=== PATIENT | male | born 1970 | race Caucasian/White ===

== ENCOUNTER 2018-05-10 11:43 | Outpatient (CLI) | payer BC, SELFPAY ==
--- NOTE | 2018-05-10 10:38 | DI.RAD_ITS ---
SYMPTOM/DIAGNOSIS: PAIN RIGHT ELBOW: No bony or joint abnormality is seen.
== END 2018-05-10 12:03 ==
PROVIDERS: PCP Family Medicine; Visit Provider Orthopaedic Surgery
DX: M25.521 Pain in right elbow (principal)
CPT/HCPCS: 73080

== ENCOUNTER 2022-01-28 07:59 | Day surgery (SDC) | payer BC, SELFPAY ==
--- NOTE | 2022-01-27 23:33 | PDOC.DSDIS_ITS ---
Discharge Plan Disposition Patient Disposition: HOME Condition: Good Discharge Details Reason For Visit: colon scope Attending Provider: Winsome Fraga Primary Care Provider: Mary Talamantes Home Meds and New Rx's Prescriptions: No Action triamcinolone acetonide 0.1 % cream 1 applic Topical BID Qty: 30 2RF epinephrine [EpiPen 2-Carlos] 0.3 mg/0.3 mL auto-injector 0.3 mg IM ONCE Qty: 2 0RF psyllium husk [Metamucil] 0.4 gram Capsule 0.4 g PO DAILY Discharge Instructions Additional Instructions: DSU Colonoscopy Post- Op Instructions Instructions for Everyone who is given Anesthesia: For your safety, please do the following for the next twenty-four (24) hours: *Do Not operate a motor vehicle (car, truck, motorcycle, etc.) *Do Not drink alcoholic beverages or use any recreational drugs for the first 24 hours or while taking pain medications. The medications in your body may have a reaction that can be dangerous. *Do Not make any important decisions or sign any important papers. Findings: x2 small polyps Follow up: My office will send a letter in 2 to 3 weeks time detailing as to what type of polyps they are and when we want you to repeat the colonoscopy. 1. No lifting over 20 pounds or strenuous activity for the first 24 hours after your procedure. After 24 hours there are no restrictions on your activity but you may feel fatigued for a few days. 2. After you arrive home you may have a light meal and return to your normal diet as you can tolerate it without feeling sick to your stomach. 3. You may have a bloated, gaseous feeling in your belly (abdomen) after a colonoscopy. Passing gas and belching will help. Walking or lying down on your left side with your knees flexed may relieve the discomfort. Call the office at [phone] (Office) or [phone] (Hospital) right away if you notice any of the following: a.Vomiting of blood or ?coffee ground stools?. b.Rectal bleeding 1Tbsp, blood clots or continuous bleeding. c.Severe belly (abdominal) pain. d.A hard distended belly (abdomen) and an inability to pass gas. 4. Please don?t expect to have a normal BM (bowel movement) for 2-3 days after your procedure. 5. If there are questions regarding the findings of your procedure, please contact your doctor 6. If you are unable to contact your doctor with a problem, contact the hospital at [phone]. 7. Continue all your regular medications unless directed otherwise. I understand the above instructions and have no questions. Signature of Patient or Adult Escort Name of Responsible Adult Escort Signature of Nurse Date/Time Activity:: see above Diet:: see above Discharge Orders Discharge Orders: Discharge Order (Routine); Ordered 01/27/22 Ordered By: Winsome Fraga
--- NOTE | 2022-01-27 23:34 | COLE_ITS ---
Colonoscopy Report Date of procedure: 01/28/22 Pre-op diagnosis general: 2degree family member w/ CRC cancer Post-op diagnosis procedure note: other (polyps x2 ) Surgeon: Winsome Fraga Anesthesia Type: General:No Airway Estimated blood loss (mL): 1 Complications: None Disposition: same day Prep: Miralax/Dulcolax Retraction Time: 9 mis Procedure Description: After informed consent was obtained the patient was taken to the procedure room and placed in a left decubitous position. Monitors were applied and a time out was done. The patients name, date of , procedure, allergies to medications and metal in their body was reviewed. The patient was then sedated. Once sedated and comfortable a rectal exam was done. External exam was normal. Internal exam revealed a normal sphincter tone and no palpable masses. The scope was then introduced and retrofelexed. No internal hemorrhoids were identified. The scope was then advanced to the cecum w/ difficulty. The TI and appendiceal orifice were identified. The prep was BBPSI in right colon/cecum and BBPS III in transverse/sigmoid/rectum, for a total of 7. We did lavage the right colon with almost 2 L of saline today. There are no AVMs, or polyps visualized today. The mucosa is pink and healthy with a normal vascular pattern . There was a <5mm flat polyp @ 30cm & in rectum. THese are removed w/ a cold forcept. All specimen is retrieved and no bleeding is noted. The scope was then slowly retracted over 9 minutes back into the rectum. There are no AVMs or diverticula seen today. The scope was removed and the patient was woken up and taken back to Same day surgery in stable condition. The patient tolerated the procedure well and there were no immediate complications. Follow up: The patient should follow up in 5-7 years, path pd, unless they develop changes in bowel habits or other new gastrointestinal complaints.
[2022-01-28 08:12] VITALS: BP 130/87; PULSE 73; RESP 16; TEMP 36.2; O2SAT 97
[2022-01-28] MEDS: Lactated Ringers 1,000 ML 80 ML IV (08:31)
--- NOTE | 2022-01-28 08:38 | W.ANESPRE ---
General Info Date of Service Date Performed: 01/28/22 Height: 5 ft 11 in Weight: 106.6 kg Body Mass Index (BMI): 32.8 Surgical Procedure: Operation Date: 01/28/22 09:05 Proposed Procedure Side Surgeon p Colonoscopy Winsome Fraga DO Actual Procedure Side Surgeon p Colonoscopy Not Applicable Winsome Fraga, Pre-Op Diagnosis Post-Op Diagnosis SCREENING Meds Allergies and Home Medications Allergies Allergy/AdvReac Type Severity Reaction Status Date / Time shellfish derived Allergy Severe Anaphylaxis Verified 01/28/22 08:09 bee pollen Allergy Intermediate SWELLING Verified 01/28/22 08:09 aspirin Allergy Mild Headache Verified 01/28/22 08:19 and hives Home Medication Medication Instructions Recorded epinephrine 0.3 mg/0.3 mL 0.3 mg (0.3 mL) IM ONCE #2 ea 12/24/21 injection, auto-injector (EpiPen 2-Carlos) triamcinolone acetonide 0.1 % 1 applic topical BID #30 grams 12/24/21 topical cream psyllium husk 0.4 gram capsule 0.4 g PO DAILY 01/26/22 (Metamucil) Current Visit Medications: Current Medications Generic Name Dose Route Start Last Admin Trade Name Freq PRN Reason Stop Dose Admin Hyoscyamine Sulfate 0.125 mg 01/27/22 23:33 Hyoscyamine 0.125 Mg Sl/Oral/Chew SL DIRECTED PRN Ringer's Solution 1,000 mls @ 80 mls/hr 01/28/22 06:00 01/28/22 08:31 IV 02/26/22 23:59 80 mls/hr INFUSION EDEN Administration IV Miscellaneous Supplies 1 each 01/28/22 06:00 Iv Access IV 02/26/22 23:59 DIRECTED EDEN Ondansetron HCl 4 mg 01/27/22 23:33 Ondansetron 4 Mg/2 Ml Vial IVP Q4H PRN PRN Nausea / Vomiting Sodium Chloride 0 ml 01/28/22 06:00 Normal Saline Flush 10 Ml Syr IV 02/26/22 23:59 PRN PRN Sodium Chloride 0 ml 01/28/22 06:00 Normal Saline 10 Ml Vial IJ 02/26/22 23:59 DIRECTED PRN Sterile Water 0 ml 01/28/22 06:00 Water,Injection,Sterile 10 Ml Vial IJ 02/26/22 23:59 DIRECTED PRN [facility] Active Problems Active Problems: Problem Status Onset Code Obstructive sleep apnea syndrome G47.33 Obesity E66.9 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 Screening for colon cancer Z12.11 Medical History Medical History Fatigue Fracture of bone Non-neoplastic nevus Smoker 10 years ago quit Surgical History Surgical History Tonsillectomy and adenoidectomy Tobacco Smoking/Tobacco Use Status: Former Tobacco Use Passive smoking exposure: Yes Second hand exposure: Yes Alcohol Alcohol Intake: current Alcohol intake frequency: a few times a month Alcohol type: wine Substance Use Substance use: Never Substance use type: does not use Vital Signs and Lab Results Vital Signs Most Recent Vital Signs in EMR: Most Recent Vital Signs Temp Pulse Resp BP Pulse Ox 36.2 C L 73 16 130/87 97 01/28/22 08:12 01/28/22 08:12 01/28/22 08:12 01/28/22 08:12 01/28/22 08:12 Lab Results Blood Type / Crossmatch: No Data to Display Complete Blood Count: No Data to Display Complete Metabolic Panel: No Data to Display Liver Function Panel: No Data to Display Coagulation Panel: No Data to Display Cardiac Panel: No Data to Display Arterial Blood Gas: No Data to Display Venous Blood Gas: No Data to Display Pancreas Panel: No Data to Display Thyroid Panel: No Data to Display Infectious Disease: No Data to Display Blood Cultures: No Data to Display Toxicology Panel: No Data to Display Anesthesia Assessment and Plan Anesthesia History Personal History: No History of Anesthesia Complications Family History: No Family History of Anesthesia Complications Exercise Tolerance Exercise Tolerance: Metabolic Equivalents>4 Pertinent Negatives Pertinent Negatives: No Symptoms of GERD, No Major Cardiovascular Symptoms or Complaints and No Major Pulmonary Symptoms or Complaints Cardiac & Pulmonary Exam Cardiac Exam: Normal S1/S2 Heart Sounds Pulmonary Exam: Clear Bilateral Breath Sounds Implantable Cardiac Device Does patient have a Pacemaker or an ICD?: No Airway Exam Known Difficult Airway: No Mallampati Class: 1 Mouth Opening: Normal (> 3cm) Thyromental Distance: Less than 3 cm Neck Range of Motion: Full ROM Neck Circumference: Normal Teeth Condition: Normal Dentition ASA Classification ASA Score: ASA 2 Emergency Case?: No NPO Status NPO Status: NPO Clears >2 hours, Solids >8 hours Anesthesia Plan Resuscitation Status: Full Code Anesthesia Technique: General Anesthesia Airway Planned: Natural Airway Monitors Used: Standard Monitors
[2022-01-28 08:40] VITALS: BMI 32.8
--- NOTE | 2022-01-28 10:50 | BOWEL_PTH ---
PATIENT: Terrence Palomares LOC: [facility] U#:[id number] AGE/SX: 51/M ROOM: RE01/28/[address]: Winsome Fraga : 1970 BED: DIS: 01/28/2022 SPEC #: [id number] RECD: 01/28/22 11:48 STATUS: JAELYN REQ #: [id number] BRINDA: 01/28/22 10:[address]: Winsome Fraga DEPT: Surgical Specimen RECD BY: Brianna Smith ENTERED: 01/28/22 11:49 SP TYPE: Bowel OTHR DR: Mary Talamantes, PhD [employer]EM[employer] Tissues: 1 - BIOPSY BOWEL 2 - BIOPSY BOWEL Procedures: GROSS AND MICRO LEVEL 4 Comments: [id number]
[2022-01-28 11:03] VITALS: BP 139/94; PULSE 80; RESP 17; TEMP 36.1; O2SAT 98
[2022-01-28 11:33] VITALS: BP 131/93; PULSE 66; RESP 16; TEMP 36.6; O2SAT 96
--- NOTE | 2022-01-28 12:24 | W.ANESPOSTOP ---
Postoperative Evaluation Date, Time and Location Date Performed: 01/28/22 Time Performed: 12:24 Patient Location: Day Surgery Unit Vital Signs Most Recent Imported Vital Signs: Most Recent Vital Signs Temp Pulse Resp BP Pulse Ox 36.6 C 66 16 131/93 H 96 01/28/22 11:33 01/28/22 11:33 01/28/22 11:33 01/28/22 11:33 01/28/22 11:33 Pain Score Most Recent Pain Score: Most Recent Pain Score Pain Level 0 01/28/22 11:33 Assessment Mental Status: Awake (Alert & Oriented to Patient Baseline) Airway and Respiratory Function: Patent airway with normal (patient baseline) respiratory exam Cardiovascular Function: Hemodynamically Stable Hydration Status: Adequately Hydrated Nausea & Vomiting: No Nausea or Vomiting Pain: Pt. Denies Any Pain Peripheral Nerve Block: Patient did not receive a nerve block
== END 2022-01-28 12:25 | disposition home or self-care (01) ==
PROVIDERS: PCP Nurse Practitioner; Visit Provider Surgery
PROC: 0DJD8ZZ Inspection of Lower Intestinal Tract, Via Natural or Artificial Opening Endoscopic (ICD-10-PCS; CPT 45378; principal; 2022-01-28 09:00)
DX: Z12.11 Encounter for screening for malignant neoplasm of colon (principal); Z80.0 Family history of malignant neoplasm of digestive organs; K62.1 Rectal polyp; K63.5 Polyp of colon
CPT/HCPCS: 45380; 88305; J2704

== ENCOUNTER 2022-07-18 04:09 | Outpatient (CLI) | payer BC, SELFPAY ==
[2022-07-18 12:57] LABS: ALT 41 U/L (16-63); AST 26 U/L (15-37); Albumin 3.8 g/dL (3.4-5.0); Alkaline Phosphatase 63 U/L (46-116); Anion Gap 10.2 mmol/L (3-11); BUN 13 mg/dL (7-18); Bilirubin, Total 0.3 mg/dL (0.2-1.0); CO2 26.8 mmol/L (21.0-32.0); Calcium 8.9 mg/dL (8.5-10.1); Calculated LDL 143 mg/dL (<100); Chloride 100 mmol/L (98-107); Cholesterol 198 mg/dL (<200); Estimated GFR 91.69 (mL/min/1.73m2); Glucose 99 mg/dL (74-106); HDL Cholesterol 38 mg/dL (40-60); Potassium 3.9 mmol/L (3.5-5.1); Sodium 137 mmol/L (136-145); Total Protein 7.3 g/dL (6.4-8.2); Triglyceride 89 mg/dL (<150)
== END 2022-07-18 04:10 | disposition home or self-care (01) ==
LOC: LOS 04:09
PROVIDERS: Nurse Practitioner Family; PCP Nurse Practitioner Family; Visit Provider Nurse Practitioner Family
DX: E66.9 Obesity, unspecified (principal); Z00.00 Encounter for general adult medical examination without abnormal findings
CPT/HCPCS: 36415; 80053; 80061

== ENCOUNTER → 2023-05-09 18:30 | Outpatient (CLI) | payer BC, SELFPAY ==
--- NOTE | 2023-05-09 18:30 | DI.RAD_ITS ---
Exam(s) XR WRIST RT COMPLETE EXAM: XR WRIST RT COMPLETE CLINICAL HISTORY: eval pathology. TECHNIQUE: 2D digital imaging was performed. COMPARISON: No exams were available for comparison FINDINGS: 3 views No fracture or dislocation nor significant ulnar variance. Scapholunate distance normal. Scaphoid u nremarkable. Bone density normal. No osseous lesions. No erosions. IMPRESSION: No significant osseous findings in the wrist. DATA REPOSITORY: RADIATION DOSE DELIVERED:
--- NOTE | 2023-05-09 18:30 | DI.RAD_ITS ---
Exam(s) XR HAND RT COMPLETE EXAM: XR HAND RT COMPLETE CLINICAL HISTORY: evaluate pathology. TECHNIQUE: 2D digital imaging was performed. COMPARISON: No exams were available for comparison FINDINGS: 3 views No evidence of acute fracture nor dislocation. No radiopaque foreign body. No osseous lesions. Bon e density normal. IMPRESSION: No acute osseous findings. DATA REPOSITORY: RADIATION DOSE DELIVERED:
--- NOTE | 2023-05-09 19:27 | DI.VRAD_ITS ---
PROCEDURE INFORMATION: Exam: XR Right Hand Exam date and time: 05/09/2023 6:36 PM Age: 53 years old Clinical indication: Other: Pain TECHNIQUE: Imaging protocol: Radiologic exam of the right hand. Views: 3 or more views. COMPARISON: CR XR elbow RT complete 05/10/2018 10:49 AM FINDINGS: Bones/joints: Normal. Soft tissues: Normal. IMPRESSION: No acute findings. Dictated and Authenticated by: Darron Guillermo MD. Ordering:TATIANNA Goel MD
--- NOTE | 2023-05-09 19:27 | DI.VRAD_ITS ---
PROCEDURE INFORMATION: Exam: XR Right Wrist Exam date and time: 05/09/2023 6:36 PM Age: 53 years old Clinical indication: Other: Pain TECHNIQUE: Imaging protocol: Radiologic exam of the right wrist. Views: 3 or more views. COMPARISON: CR XR elbow RT complete 05/10/2018 10:49 AM FINDINGS: Bones/joints: Normal. Soft tissues: Normal. IMPRESSION: No acute findings. Dictated and Authenticated by: Darron Guillermo MD. Ordering:TATIANNA Goel MD
== END ==
PROVIDERS: PCP Nurse Practitioner Family; Visit Provider Nurse Practitioner Family
DX: M25.531 Pain in right wrist (principal); M79.641 Pain in right hand
CPT/HCPCS: 73110; 73130

== ENCOUNTER 2024-02-05 03:01 | Outpatient (CLI) | payer BC, SELFPAY ==
[2024-02-05 12:51] LABS: ALT 27 U/L (16-63); AST 12 U/L (15-37); Alkaline Phosphatase 73 U/L (46-116); Anion Gap 7.2 mmol/L (3-11); BUN 14 mg/dL (7-18); Bilirubin, Total 0.29 mg/dL (0.2-1.0); CO2 28.8 mmol/L (21.0-32.0); Calculated LDL 120 mg/dL (<100); Chloride 104 mmol/L (98-107); Cholesterol 186 mg/dL (<200); Estimated GFR 91.12 (mL/min/1.73m2); Glucose 111 mg/dL (74-106); HDL Cholesterol 56 mg/dL (40-60); Sodium 140 mmol/L (136-145); Total Protein 7.3 g/dL (6.4-8.2); Triglyceride 52 mg/dL (<150)
== END 2024-02-05 03:02 | disposition home or self-care (01) ==
LOC: LOS 03:01
PROVIDERS: PCP Nurse Practitioner Family; Visit Provider Nurse Practitioner Family
DX: E66.9 Obesity, unspecified (principal)
CPT/HCPCS: 36415; 80053; 80061

== ENCOUNTER 2025-04-30 01:52 | Outpatient (CLI) | payer BC, SELFPAY ==
[2025-05-01 09:45] LABS: HBs Antibody, Quant 5.7 mIU/mL (See Note); Hepatitis B Surface Antigen Negative (Negative)
[2025-05-01 09:50] LABS: PSA, Screening 1.7 ng/mL (<=3.5)
[2025-05-08 12:44] LABS: Testosterone, Free 9.66 ng/dL (4.06-15.6)
== END 2025-04-30 01:53 | disposition home or self-care (01) ==
PROVIDERS: PCP Nurse Practitioner Family; Visit Provider Nurse Practitioner Family
DX: Z11.59 Encounter for screening for other viral diseases (principal); Z12.5 Encounter for screening for malignant neoplasm of prostate; R53.83 Other fatigue; E29.1 Testicular hypofunction
CPT/HCPCS: 36415; 84153; 84402; 84403; 86704; 86706; 87340